=== PATIENT | female | born 1995 | race Caucasian/White ===

== ENCOUNTER 2021-04-07 11:00 | Emergency (ER) | payer OTHER ==
[2021-04-07 11:14] VITALS: BP 116/67; PULSE 87; TEMP 97; BMI 31.1
[2021-04-07 13:27] LABS: EPI CELLS 9 /uL (0-25.1); HYALINE CASTS 2 /uL (0-3.1); PH,URINE 5.5 (5.0-8.0); URINE APPEARANCE CLEAR; URINE BACTERIA 181 /uL (0-1359); URINE BILIRUBIN NEGATIVE (NEGATIVE); URINE COLOR DK YELLOW; URINE GLUCOSE (UA) NEGATIVE (NEGATIVE); URINE KETONE NEGATIVE (NEGATIVE); URINE LEUK ESTERASE NEGATIVE (NEGATIVE); URINE NITRITE NEGATIVE (NEGATIVE); URINE PROTEIN TRACE (NEGATIVE); URINE RBC 32 /uL (0-23.9); URINE WBC 17 /uL (0-25.8)
[2021-04-07 13:28] LABS: HCG,QUALITATIVE URINE Negative
== END 2021-04-07 13:01 | disposition home or self-care (01) ==
LOC: JER 11:00
DX: R30.0 Dysuria (principal); R10.9 Unspecified abdominal pain; R07.0 Pain in throat
CPT/HCPCS: 81003; 84703; 87086; 87880; 99283-25